=== PATIENT | female | born 1940 | race Caucasian/White ===

== ENCOUNTER → 2023-09-20 09:05 | Outpatient (REF) | payer MEDICARE, OTHER, SELFPAY ==
[2023-09-20 12:30] LABS: % Eosinophils 1.3 % (0-6); % Immature Granulocytes 0.1 % (0-0.5); % Lymphocytes 32.5 % (20.5-51.1); % Monocytes 8.6 % (1.7-9.3); % Neutrophils 56.5 % (42.2-75.2); Absolute Basophils 0.1 10^3/uL (0-0.2); Absolute Eosinophils 0.1 10^3/uL (0-0.7); Absolute Lymphocytes 2.2 10^3/uL (1.2-3.4); Absolute Monocytes 0.6 10^3/uL (0.1-0.6); Absolute Neutrophils 3.9 10^3/uL (1.4-6.5); Hemoglobin 12.4 g/dL (12.0-16.0); Mean Corp Hgb Conc. 33.5 g/dL (33.0-37.0); Mean Corpuscular Hgb 30.5 pg (27.0-31.0); Mean Corpuscular Volume 90.9 fL (81.0-99.0); Mean Platelet Volume 10.6 fL (7.4-10.4); Nucleated Red Blood Cells % 0 %; Platelet Count 270 10^3/uL (130-400); Red Blood Cell Count 4.07 10^6/uL (4.20-5.40); Red Cell Dist. Width 13.2 % (11.5-14.5); White Blood Cell Count 6.9 10^3/uL (4.8-10.8)
[2023-09-20 12:41] LABS: ALT (SGPT) 16 U/L (0-35); AST (SGOT) 23 U/L (14-36); Albumin 3.5 g/dl (3.5-5.0); Alkaline Phosphatase 62 U/L (38-126); Blood Urea Nitrogen 23 mg/dl (7-17); Calcium 9.1 mg/dl (8.4-10.2); Carbon Dioxide 32 mmol/L (22-30); Chloride 102 mmol/L (98-107); Glucose 109 mg/dl (70-99); HDL Cholesterol 54 mg/dl; LDL Cholesterol, Calculated 81 mg/dl; Potassium 3.6 mmol/L (3.5-5.1); Sodium 140 mmol/L (135-145); Total Bilirubin 0.7 mg/dl (0.2-1.3); Total Cholesterol 150 mg/dl (50-199); Total Protein 6.5 g/dl (6.3-8.2); Triglyceride 78 mg/dl (10-149); Very Low Density Lipoprotein 15 mg/dl (0-30); eGFR > 60.00
== END ==
LOC: HWLAB 09:05
PROVIDERS: ATTENDING PHYSICIAN Family Medicine
DX: Z00.00 Encounter for general adult medical examination without abnormal findings (principal); I10 Essential (primary) hypertension; E03.9 Hypothyroidism, unspecified; Z78.0 Asymptomatic menopausal state; I47.10 Supraventricular tachycardia, unspecified; I34.0 Nonrheumatic mitral (valve) insufficiency
CPT/HCPCS: 36415; 80053; 80061; 84443; 85025

== ENCOUNTER → 2024-02-27 12:54 | Outpatient (REF) | payer MEDICARE, OTHER, SELFPAY | LOC: HWRCS 12:54 | PROVIDERS: ATTENDING PHYSICIAN Internal Medicine; FAMILY PHYSICIAN Family Medicine | DX: I10 Essential (primary) hypertension (principal); I34.0 Nonrheumatic mitral (valve) insufficiency | CPT/HCPCS: 93306 ==

== ENCOUNTER 2024-03-31 07:51 | Day surgery (SDC) | payer MEDICARE, OTHER, SELFPAY ==
[2024-03-13 13:31] VITALS: BMI 32.5
[2024-03-31] VITALS (13 sets, daily range): BP systolic 89–139; BP diastolic 51–71; BMI 31.9
[2024-03-31] MEDS: TYLENOL 1000 MG PO (09:10)
[2024-03-31 11:41] LABS: ACT-LR - POC 326 Seconds (116-155)
[2024-03-31 12:04] LABS: ACT-LR - POC 371 Seconds (116-155)
[2024-03-31 12:42] LABS: ACT-LR - POC 347 Seconds (116-155)
--- NOTE | 2024-03-31 13:12 | ITS.CL.ABL ---
[employer] - Ablation
Ablation
Procedure Report:
AFIB ablation:
Ms. Hathaway is a very pleasant 83 yr old woman with hx of SVT s/p attempted SVT ablation in 2014 with mitral regurgitation and recurrent tachyarrhythmia with frequent AT and PACs along with irregular rhythm has also noted to have bradycardia and is
here for EP study, ablation of SVT and other arrhythmia.
Date of the Procedure:
03/31/2024
Indications:
Atrial tachycardia, paroxysmal atrial fibrillation, atrial flutter
Pre-Operative Diagnosis:
Atrial tachycardia, paroxysmal atrial fibrillation, atrial flutter
Post-Operative Diagnosis:
Atrial tachycardia, paroxysmal atrial fibrillation, atrial flutter
Procedure Performed:
Atrial fibrillation ablation with Pulsed-Field approach for pulmonary vein isolation
Roof dependent atrial flutter ablation.
Atrial tachycardia ablation of the left atrial anterior wall
Mitral flutter ablation with anterior line of block formation.
Performing Physician:
Wanda Stahl MD
Assistants:
EP staff
Anesthesia:
See anesthesia records
Detailed Description of the Procedure:
Written informed consent was obtained from the patient after a full explanation of the risks and benefits of the procedure including the risks of sedation and anesthesia.
The patient was brought to the electrophysiology laboratory in stable condition in fasting state. Continuous electrocardiographic and hemodynamic monitoring was initiated.
The initial rhythm was sinus with PACs.
The procedure site was meticulously prepared with surgical scrub and allowed to dry with no pooling. Sterile draping was applied to cover the procedure site. The image intensifier was draped with sterile bag and positioned over the patient. After
infusion of local anesthetic, vascular access was obtained under ultrasound guidance and sheaths were placed over guide wire as detailed below.
Sheath and Catheter Placement:
The following catheters / sheaths were placed
Sheaths:
��������� 15Fr steerable sheath (FlexCath Cross�, TEXbase) in right femoral vein in right femoral vein
��������� 9Fr in right femoral vein
��������� 7Fr in right femoral vein
Catheters:
��������� Pentaray mapping catheter � at locations of RA, LA
��������� PulseSelect� PFA catheter
��������� ICE catheter -AcuNav - at locations of RA, SVC, and RV.
��������� Decapolar Bard catheter in RA and CS
Patient went into atrial fibrillation but came out spontaneously. There were multiple PACs coming noted from the left atrium with eccentric CS activation. Decision was made to proceed with transseptal puncture.
Intracardiac ECHO:
An 8-Monegasque AcuNav intracardiac ECHO (ICE) probe was advanced through the 9-Monegasque sheath in the right femoral vein into the right atrium under fluoroscopic and ICE ultrasound image guidance and a baseline ECHO study was performed. The left atrial
size was dilated. There was moderate tricuspid and mitral regurgitation. The aortic valve was grossly normal. There was normal left ventricular systolic functions. There is no pericardial effusion. All the four veins were identified and has flow
identified.
During the procedure, ICE was used for monitoring of complications, guidance of trans-septal puncture, monitor the catheter position and tracking ablation lesions. No change in the pericardial space noted throughout the procedure.
Trans-septal Puncture:
Heparin was initiated and infused to maintain appropriate ACT. A J-tipped guidewire was advanced through the 8-Monegasque sheath in the right femoral vein into the superior vena cava under fluoroscopic and ICE guidance. The 8-Monegasque sheath was exchanged
for a FlexCath Cross sheath which was advanced into the superior vena cava. An AcBOLD Guidance transseptal access system was utilized to perform the trans-septal puncture. The apparatus was withdrawn until it was in contact with the fossa ovalis. The
position was adjusted based on fluoroscopy and ultrasound images from ICE. Under fluoroscopic, hemodynamic and ICE ultrasound guidance, left atrium was cannulated by advancing the needle. Once atrial septum was cannulated, the needle was pulled back
and a guide wire was advanced through the needle into the left atrium. The guide wire was advanced into the left superior pulmonary vein. Both the sheath and the dilator was advanced into the left atrium. The dilator with the needle was withdrawn.
Blood was aspirated from the FlexCath cross sheath and arterial blood confirmed. The sheath was flushed. Saline injection noted into the left atrium on ICE. The mapping catheter was advanced in the sheath into the left pulmonary vein. Left atrial
pressure was measured.
3D Electroanatomic Mapping:
Using the Pentaray mapping catheter advanced through sheath into the left atrium, an electroanatomic map (EAM) of the left atrium was created using CARTO mapping system. The map was used for localization of catheter position and tacking of ablation
lesions. The EAM of the left atrium showed 4 pulmonary veins with two left sided and two right sided veins electrically connected to the body the LA. There was extensive areas of low voltage noted in the left atrium.
The LA was severely dilated in size.
The PAC and atrial tachycardia was mapped. It appeared to be coming from the anterior wall and the base of the FERNANDEZ along with right sided pulmonary veins.
Following the EAM, preparation were made for ablation.
Ablation:
Ablation # 1: Pulmonary vein Isolation:
Glycopyrrolate 0.2 mg was given prior to the placement of ablation. Using [employer]� pulsed field ablation system, pulmonary vein isolation was achieved. First the ablation catheter was placed in the LSPV and ostial ablation lesions were performed
in a counter clock richardson approach all around the PV ostium circumferentially. Then the catheter was placed on the antral location and multiple ablation lesions were placed circumferentially on the antrum of the vein.
In the similar fashion, the LIPV were isolated.
Then the catheter was moved to right sided veins. The ostial and antral ablations were placed as noted above to the RSPV and RIPV.
Electroanatomic mapping of LA
Once the sinus rhythm achieved, the LA was mapped with Pentaray in detail.
Patient went into atrial flutter and was entrained and mapped. The arrhythmia was mainly coming from LA and mapping showed it is roof dependent atrial flutter.
Ablation # 2: Atrial flutter ablation:
The atrial flutter was mapped and was 430 ms cycle length. It was roof dependent and critical isthmus of the flutter was noted to be anterior to the left superior pulmonary vein.
Using the pulsed select ablation catheter, the roof of the left atrium was ablated. The tachycardia terminated into normal sinus rhythm.
Further ablation lesions were placed on the roof at the remaining channels.
Ablation # 3: Atrial tachycardia ablation:
The source of the AT was noted at the base of the FERNANDEZ. There was significant scar on the anterior wall. The source of the AT and PAC was ablated.
Ablation #4: Mitral flutter ablation with anterior line formation:
With the ablation of the anterior wall, there were multiple channels remained that was the set up for Mitral flutter with anterior scar. �
Series of ablation were placed connecting the RSPV antrum to the anterior mitral annulus through the previous scar eliminating any remaining electrical activity.
Summary of ablation applied:
LSPV: 13 lesions ;������������� RSPV: 16 lesions
LIPV: 9 lesions; RIPV: 13 lesions
Roof, anterior LA and Mitral line: 18 lesions.
Total 69 ablation lesions.
Post ablation Electroanatomic mapping:
Once ablation was completed, the EAM of the LA was done again in sinus rhythm with excellent demarcation of LA myocardium and isolated antral tissue.
EPS and Confirmation of the PVI and bidirectional block:
Following achievement of entrance block at the pulmonary veins, pacing from the pentaray catheter in each of the four veins at 10 milliamps for 2 milliseconds showed entrance and exit block. All PVI were rechecked at the end of the case and remained
isolated with dissociated and local capture with pacing. Entrance and exit block were demonstrated in all veins.
Procedure End
ICE study was done again that showed no epicardial accumulation. No complications noted.
Following the completion of the EP study, catheters were removed. Protamine 30 mg was given at the end of the procedure and ACT was checked repeatedly. The sheaths were removed and hemostasis achieved with manual compression after acceptable ACT is
achieved.
Left atrial Pressure:
Pre-Procedure: Mean LA pressure was 6mmHg
Post-Procedure: Mean LA pressure was 7mmHg
Post-Procedure: Mean LR pressure was 1mmHg
Fluoro time:
7.3 min / 18.3 mGy
Estimated Blood loss:
<10 cc
Specimens Removed:
None.
Implants / Devices:
None
Urine output:
None
Packs / Drains/ Tubes:
None
Instrument / Sponge Count Correct:
Yes
Complications of the Procedure:
None
Condition of Patient at Time of Transfer:
Hemodynamically stable with no neurological or vascular compromise.
Summary:
Successful atrial fibrillation ablation with Pulsed Field approach for pulmonary vein isolation, atypical roof dependent flutter ablation, left atrial tachycardia ablation, Mitral line formation.
Start Eliquis 5 mg BID (CHADSVasc 4 - Age, gender, HTN)
Figures from the Procedure:
Figure 1: The electroanatomic mapping (EAM) of the left atrium with bipolar voltage (purple indicates normal electrical activity with kent as no myocardial muscle electric activity indicating a line of block or scar.
[2024-04-01 07:30] LABS: ACT-LR - POC > 397 Seconds (116-155)
== END 2024-03-31 16:57 | disposition home or self-care (01) ==
LOC: CATH 07:51
PROVIDERS: ATTENDING PHYSICIAN Internal Medicine Cardiovascular Disease; FAMILY PHYSICIAN Family Medicine; OTHER PHYSICIAN Internal Medicine
DX: I47.19 Other supraventricular tachycardia (principal); I48.0 Paroxysmal atrial fibrillation; I48.92 Unspecified atrial flutter; I34.0 Nonrheumatic mitral (valve) insufficiency; I10 Essential (primary) hypertension; Z79.01 Long term (current) use of anticoagulants
CPT/HCPCS: C1894; C1730; C1769; C1732; C1759; C1733; C1766; C1892; 85347; 86850; 86900; 86901; 93005; 93655; 93656; 93657; C1760

== ENCOUNTER → 2024-04-22 11:41 | Outpatient (REF) | payer MEDICARE, OTHER, SELFPAY ==
[2024-04-22 16:10] LABS: Blood Urea Nitrogen 25 mg/dl (7-17); Calcium 9.1 mg/dl (8.4-10.2); Carbon Dioxide 34 mmol/L (22-30); Chloride 100 mmol/L (98-107); Glucose 150 mg/dl (70-99); Potassium 3.8 mmol/L (3.5-5.1); Sodium 139 mmol/L (135-145); eGFR > 60.00
== END ==
LOC: HWLAB 11:41
PROVIDERS: ATTENDING PHYSICIAN Nurse Practitioner; FAMILY PHYSICIAN Family Medicine
DX: E03.9 Hypothyroidism, unspecified (principal)
CPT/HCPCS: 36415; 80048

== ENCOUNTER 2024-06-08 03:19 | Emergency (ER) | payer MEDICARE, OTHER, SELFPAY ==
[2024-06-08] VITALS (28 sets, daily range): BP systolic 94–128; BP diastolic 59–81; BMI 30.9
[2024-06-08 04:05] LABS: % Basophils 0.6 % (0-2); % Eosinophils 0.7 % (0-6); % Immature Granulocytes 0.4 % (0-0.5); % Monocytes 9.2 % (1.7-9.3); % Neutrophils 60.1 % (42.2-75.2); Absolute Basophils 0.1 10^3/uL (0-0.2); Absolute Eosinophils 0.1 10^3/uL (0-0.7); Absolute Lymphocytes 2.4 10^3/uL (1.2-3.4); Absolute Monocytes 0.8 10^3/uL (0.1-0.6); Hematocrit 35.1 % (37.0-47.0); Mean Corp Hgb Conc. 34.2 g/dL (33.0-37.0); Mean Corpuscular Hgb 29.9 pg (27.0-31.0); Mean Corpuscular Volume 87.5 fL (81.0-99.0); Mean Platelet Volume 10.3 fL (7.4-10.4); Nucleated Red Blood Cells % 0 %; Platelet Count 250 10^3/uL (130-400); Red Blood Cell Count 4.01 10^6/uL (4.20-5.40); White Blood Cell Count 8.2 10^3/uL (4.8-10.8)
[2024-06-08 04:20] LABS: Troponin I < 0.012 ng/ml
[2024-06-08 04:52] LABS: ALT (SGPT) 18 U/L (0-35); AST (SGOT) 24 U/L (14-36); Alkaline Phosphatase 67 U/L (38-126); Blood Urea Nitrogen 32 mg/dl (7-17); Calcium 8.3 mg/dl (8.4-10.2); Carbon Dioxide 26 mmol/L (22-30); Chloride 101 mmol/L (98-107); Glucose 128 mg/dl (70-99); Potassium 2.7 mmol/L (3.5-5.1); Sodium 139 mmol/L (135-145); Total Bilirubin 0.5 mg/dl (0.2-1.3); Total Protein 6.9 g/dl (6.3-8.2); eGFR > 60.00
--- NOTE | 2024-06-08 06:48 | EDRN ---
per Dr. Fernandes, this RN is to administer IVF Bolus first and then shortly after administer cardizem
[2024-06-08] MEDS: NSS 500 IV (06:49)
--- NOTE | 2024-06-08 06:57 | EDRN ---
magnesium level has not been received from the lab, this RN geraldine and sent another mag level, Dr. Fernandes notified, and also per Dr. Fernandes he wants the cardizem gtt administered now
[2024-06-08] MEDS: CARDIZEM 5 MG IV (07:05)
[2024-06-08] MEDS: CARDIZEM 125 IV (07:06)
--- NOTE | 2024-06-08 07:15 | ED.GENMED ---
History of Present Illness
General
Chief Complaint: Cardiac Symptoms
Source: patient
Exam Limitations: none
Time Seen by Provider: 06/08/24 06:05
Nursing documentation reviewed up to this point in time: agreed with
History of Present Illness
History of Present Illness:
Patient with history of paroxysmal atrial fibrillation on Eliquis and metoprolol, status post ablation in March 2024, presents to ED secondary to recurrent chest palpitations associated with dizziness, which has been happening more frequently
over the past 2 weeks. Patient has spoken with her screw machine operator single spindle secondary to dizziness recently, and was advised to discontinue amlodipine. However, with concern that her blood pressure may not be adequate control, patient has continued to take
her medication. Denies chest pain. Denies shortness of breath. Denies headache. Denies nausea or vomiting. Patient states that she can feel when she is back in atrial fibrillation rhythm with intermittent palpitations. Patient has not missed
any dose of her Eliquis.
Past History
Past History
ED Past Medical History: Arrthythmia (Probable SVT), HTN, Psychiatric (Anxiety) and Other (Prolapse mitral valve syndrome)
ED Past Surgical History: Gynecological (Hysterectomy in 1970) and Orthopedic
Social History
Tobacco: Non-smoker
Personal:
Living: with family
Family History
Family History: Diabetes and CAD; Negative Hypertension, Early CAD, Asthma or Cancer
Review of Systems
Review of Systems
Allergies reviewed?: Yes
All Other Systems: ROS reviewed and negative except as documented in HPI and ROS
Constitutional: Reports no symptoms
EENT: Reports no symptoms
Respiratory: Reports no symptoms
Cardiac: Reports palpitations
ABD/GI: Reports no symptoms
Musculoskeletal: Reports no symptoms
Skin: Reports no symptoms
Neurological: Reports dizzy
Phy Exam
Physical Exam
Physical Exam:
Physical Exam
General: no apparent distress, not acutely ill. afebrile
Head: nc/at. eomi
Neck: supple. no meningeal signs.
Heart: irregularly irregular, tachycardic, no murmur. equal radial pulses.
Lungs: no acute respiratory distress. clear bilaterally
Abdomen: normal bowel sounds. not tender.
Neuro: alert and oriented. no focal neurological deficits
Skin: no rash
Psychiatric: well kept. interactive and cooperative
Extremities: no edema. no calf tenderness.
Course
Orders/Labs/Results
Orders:
Orders
06/08/24 03:36
ECG [Electrocardiogram (*1)] Urgent
Reason for Study: Atrial Fibrillation
06/08/24 03:37
EKG- Treatment ONCE
06/08/24 03:49
Complete Blood Count/With Diff Urgent
Comprehensive Metabolic Panel Urgent
Magnesium Urgent
TSH Reflex To Free T4 Urgent
Comment: ADD ON
Troponin I Urgent
06/08/24 06:19
Add On- LAB Urgent
Tests Added?: magnesium, TSH to reflex free T4
06/08/24 06:20
0.9% Sodium Chloride 500 ml [Nss] 500 ml IV BOLUS
Diltiazem HCl [Cardizem] 5 mg IV NOW STA
06/08/24 06:30
Diltiazem 125 mg/125 ml Nss [Cardizem] 125 mg in 125 ml IV PER PROTOCOL
Initial dose in mg/hr, then titrate:: 5
Titrate to keep:: Heart rate 80-100 bpm
Titrate by mg/hr:: 5 mg/hr
Frequency of titrations (minutes):: 15
Maximum dose in mg/hr:: 15
06/08/24 06:51
Magnesium Urgent
06/08/24 07:27
Potassium Chloride [KCl] 40 meq PO NOW STA
06/08/24 07:53
Potassium Chloride [KCl] 40 meq 0.9% Sodium Chloride 250 ml [Nss] 250 ml IV NOW
06/08/24 10:00
Electrocardiogram (*1) Urgent
Reason for Study: Atrial Fibrillation
EKG- Treatment ONCE
06/08/24 13:22
Potassium Urgent
Abnormal Lab Results
06/08/24
03:49
RBC 4.01 L 10^6/uL
(4.20-5.40)
Hct 35.1 L %
(37.0-47.0)
Absolute Monos (auto) 0.8 H 10^3/uL
(0.1-0.6)
Potassium 2.7 L* mmol/L
(3.5-5.1)
BUN 32 H mg/dl
(7-17)
Glucose 128 H mg/dl
(70-99)
Calcium 8.3 L mg/dl
(8.4-10.2)
06/08/24 03:49
06/08/24 13:22
Vital Signs
Initial and Last Documented VS:
Initial Vital Signs
Temp Pulse Resp BP Pulse Ox
98.1 F 102 22 128/76 100
06/08/24 03:29 06/08/24 03:29 06/08/24 03:29 06/08/24 03:29 06/08/24 03:29
Last Documented Vital Signs
Temp Pulse Resp BP Pulse Ox
98.1 F 88 17 105/70 97
06/08/24 03:29 06/08/24 14:15 06/08/24 14:15 06/08/24 14:00 06/08/24 14:15
MDM/Problems Addressed
MDM/Problems Addressed:
Pt started on cardizem gtt for rate control.
Discussed with cardiology (). Recommends d/c amlodipine and starting spironolactone starting tomorrow. Does not recommend additional potassium supplementation as outpatient. Cardiology office will contact patient at home, for outpatient
follow up
K+ improved after repletion. Pt is otherwise afebrile, hemodynamically stable, nontoxic appearing, and without any distress at time of discharge.
Critical care statement: A total of 40 minutes of critical care time was provided for this patient. This includes management of unstable vital signs, evaluation of the patient at bedside, reviewing the patient's pertinent medical records, discussion
with consultants, review of old EKGs and review of pertinent medical records. This time with separate from time utilized to perform the aforementioned documented procedures
*EKG
Interpreted by ED Provider?: Yes
EKG Intrepretation Date: 06/08/24
Heart Rate: 111
Rate: tachycardiac
Rhythm: a-fib
[place]: normal axis
Interval: normal interval
*Critical Care Note
Total Time (30-74mins, 75-104mins- exclusive of procedures): 40 min
ED Attending Note
-
Portions of this chart may have been created with voice recognition software.� Occasional wrong word or��sound alike� substitutions may have occurred due to the inherent limitations of voice recognition software.
Discharge Plan
Departure
Patient Disposition: Home (Routine Discharge)
Date of Disposition: 06/08/24
Time of Disposition: 14:04
Patient with high blood pressure during this ER visit?: Yes
Condition: Good
Discharge Problem:
Atrial fibrillation, Hypokalemia
Instructions: Hypokalemia, High-potassium diet, Atrial fibrillation - Discharge instructions
Prescriptions:
New
spironolactone 25 mg tablet
25 mg PO DAILY Qty: 30 0RF
No Action
levothyroxine 100 MCG tablet
100 mcg PO DAILY
metoprolol succinate 50 mg Tablet Extended Release 24 Hr
100 mg PO BID
hydrochlorothiazide 50 mg Tablet
25 mg PO DAILY
amlodipine 5 mg Tablet
5 mg PO DAILY
Eliquis 5 mg tablet
5 mg PO BID 30 Days Qty: 60 3RF
Referrals:
Bar Chaudhry MD [Active] -
Jennifer Lujan, [Family Provider] -
Activity Restrictions/Additional Instructions:
As discussed, please follow-up with your screw machine operator single spindle for further evaluation and treatment. In the meantime, please discontinue amlodipine and start taking newly prescribed spironolactone, starting tomorrow. Your prescription has been sent
electronically to [facility] pharmacy in [place].
Interventions
Interventions:
*Risk Screen - Suicide Last Done: 06/08/24 03:29
*General Assessment Last Done: 06/08/24 05:16
*Neglect/Abuse Screening Last Done: 06/08/24 03:29
ED- Fall Risk Assessment Last Done: 06/08/24 05:16
*ED COVID-19 Vaccine History Last Done: 06/08/24 05:16
*Nursing Disposition Last Done: 06/08/24 14:42
ED- Pulmonary Assessment Last Done: 06/08/24 07:19
ED- Cardiac Assessment Last Done: 06/08/24 07:19
Discharge Date and Time
Discharge Date/Time: 06/08/24 14:43
Print Language: [place]LAND[place]
[2024-06-08 07:30] LABS: TSH Reflex To Free T4 2.52 uIU/ml (0.47-4.68)
--- NOTE | 2024-06-08 07:45 | EDRN ---
this RN called the pharmacy to send this RN Potassium gtt
[2024-06-08] MEDS: KCL 40 MEQ PO (08:10)
[2024-06-08] MEDS: KCL 270 MEQ IV (08:11)
--- NOTE | 2024-06-08 08:19 | EDRN ---
this RN entered the pts room and the pt and the pts son were updated on the plan of care, the pt stated to this RN that she needed to use the bathroom, the pt ambulated to the bathroom independently with no assistance however the pt stated that she
'peed a little in my underwear', this RN provided the pt with ER underwear with a pad, the pt ambulated back to the stretcher with no issues and potassium PO was administered with no issues and Potassium gtt was hung and is running, olvin gtt
currently still running, Afib in the 80's, will continue to monitor the pt closely
--- NOTE | 2024-06-08 09:21 | EDRN ---
the pt is resting in stretcher in the lowest position, side rails up x2, call hyatt within reach, HOB elevated, no s/s of distress, no c/o chest pain, no c/o SOB, no c/o palpitations, VS WNL, Potassium gtt currently still running via the LAC with no
c/o pain at the site, Cardizem gtt currently still running at 5mg/hour and the pt is in NSR in the 80's, Dr. Fernandes has been notified and per the provider the cardizem gtt is to continue running, the pt denies needing anything at this time, will
continue to monitor the pt closely
--- NOTE | 2024-06-08 10:04 | EDRN ---
EKG being performed
--- NOTE | 2024-06-08 10:33 | EDRN ---
Dr. Fernandes currently at the pts bedside
--- NOTE | 2024-06-08 10:50 | EDRN ---
Dr. Fernandes currently at the pts bedside speaking with the pt
--- NOTE | 2024-06-08 11:19 | EDRN ---
the pt is resting in stretcher in the lowest position, side rails up x2, call hyatt within reach, HOB elevated, VS WNL, no c/o chest pain, no c/o SOB, no c/o heart palpitations, Potassium gtt currently still running, cardizem gtt currently still
running per Dr. Fernandes, the pt is currently in 'rate controlled A-flutter' in the 80's per Dr. Fernandes who is currently at the pts bedside, will continue to monitor the pt closely
--- NOTE | 2024-06-08 11:39 | EDRN ---
the pt pressed the call hyatt and this RN entered the pts room, the pt asked if she could have something to eat, this RN asked the provider Dr. Fernandes and per the provider the pt could have saltines and joaquín crackers, this RN also provided the pt with
an apple juice
--- NOTE | 2024-06-08 13:24 | EDRN ---
potassium level drawn and sent, Cardizem gtt titrated off per Dr. Fernandes
[2024-06-08 13:56] LABS: Potassium 3.7 mmol/L (3.5-5.1)
== END 2024-06-08 14:43 | disposition home or self-care (01) ==
LOC: EMR 03:19
PROVIDERS: Emergency Medicine; EMERGENCY PHYSICIAN Emergency Medicine; FAMILY PHYSICIAN Family Medicine
DX: I48.91 Unspecified atrial fibrillation (principal); E87.6 Hypokalemia; F41.9 Anxiety disorder, unspecified; I34.1 Nonrheumatic mitral (valve) prolapse; I10 Essential (primary) hypertension; Z79.01 Long term (current) use of anticoagulants; Z82.49 Family history of ischemic heart disease and other diseases of the circulatory system; Z83.3 Family history of diabetes mellitus; Z90.710 Acquired absence of both cervix and uterus
CPT/HCPCS: 99283; 96365; 96366; 96375; 96376; 80053; 83735; 84132; 84443; 84484; 85025; 93005

== ENCOUNTER → 2024-06-13 12:01 | Outpatient (REF) | payer MEDICARE, OTHER, SELFPAY ==
[2024-06-13 15:58] LABS: Blood Urea Nitrogen 25 mg/dl (7-17); Calcium 9.5 mg/dl (8.4-10.2); Carbon Dioxide 33 mmol/L (22-30); Chloride 99 mmol/L (98-107); Glucose 141 mg/dl (70-99); Potassium 3.9 mmol/L (3.5-5.1); Sodium 138 mmol/L (135-145); eGFR > 60.00
== END ==
LOC: HWLAB 12:01
PROVIDERS: ATTENDING PHYSICIAN Internal Medicine; FAMILY PHYSICIAN Family Medicine
DX: E87.6 Hypokalemia (principal); I10 Essential (primary) hypertension
CPT/HCPCS: 36415; 80048